=== PATIENT | female | born 1940 | race Caucasian/White ===

== ENCOUNTER 2021-02-14 13:48 | Outpatient (RCR) | payer OTHER, SELFPAY | END 2021-03-02 15:50 | disposition home or self-care (01) | LOC: HO.WCC 13:48 | PROVIDERS: PCP Internal Medicine; Visit Provider Surgery | DX: S81.812D Laceration without foreign body, left lower leg, subsequent encounter (principal) | CPT/HCPCS: 99212; 99213 ==